=== PATIENT | female | born 2000 | race Caucasian/White ===

== ENCOUNTER → 2022-05-09 | Outpatient (CLI) | payer BC ==
--- NOTE | 2022-05-09 16:47 | CA ---
Transthoracic Echo Report Name: Tere Estevez Age: 21 Gender: F : 2000 Exam Date: 05/09/2022 13:43 Exam Location: [facility] Ht (in): 64 Wt (lb): 105 Ordering Physician: Rashida Barth MD Attending/Referring Phys: Rashida Barth MD [employer] Mayuri Quiroga, [facility] Procedure CPT: Indications: Z82.79 fam hx bicuspid valve Cardiac Hx: Technical Quality: Good Contrast 1: Total Dose (mL): Contrast 2: Total Dose (mL): MEASUREMENTS (Male / Female) Normal Values 2D ECHO LV Diastolic Diameter PLAX 4.1 cm 4.2 - 5.9 / 3.9 - 5.3 cm LV Systolic Diameter PLAX 2.4 cm IVS Diastolic Thickness 0.9 cm 0.6 - 1.0 / 0.6 - 0.9 cm LVPW Diastolic Thickness 0.7 cm 0.6 - 1.0 / 0.6 - 0.9 cm LV Relative Wall Thickness 0.4 RV Internal Dim ED PLAX 2.4 cm LA Systolic Diameter LX 2.9 cm 3.0 - 4.0 / 2.7 - 3.8 cm LA Volume 26.4 cm??? 18 - 58 / 22 - 52 cm??? M-MODE Aortic Root Diameter MM 2.6 cm MV E Point Septal Separation 0.3 cm AV Cusp Separation MM 2.3 cm DOPPLER AV Peak Velocity 144.6 cm/s AV Peak Gradient 8.4 mmHg MV Area PHT 3.6 cm??? Mitral E Point Velocity 120.8 cm/s Mitral A Point Velocity 82.6 cm/s Mitral E to A Ratio 1.5 MV Deceleration Time 210.5 ms MV E' Velocity 21.5 cm/s Mitral E to MV E' Ratio 5.6 TR Peak Velocity 221.9 cm/s TR Peak Gradient 19.7 mmHg Right Ventricular Systolic Press 23.8 mmHg FINDINGS Left Ventricle Left ventricular ejection fraction is estimated at 60-65 %. Left ventricular cavity size normal. Left ventricular wall thickness normal. Right Ventricle Normal right ventricular size and function. Right ventricular systolic pressure within normal limits. Right Atrium Normal right atrial size. Left Atrium Normal left atrial size. No evidence for an atrial septal defect. Mitral Valve Structurally normal mitral valve. No mitral stenosis, regurgitation or prolapse. Aortic Valve Trileaflet aortic valve. No aortic valve stenosis or regurgitation. Tricuspid Valve Structurally normal tricuspid valve. Trace to mild tricuspid regurgitation. Pulmonic Valve Structurally normal pulmonic valve. Trace pulmonic regurgitation. Pericardium Normal pericardium. No pericardial effusion. Aorta Normal size aortic root and proximal ascending aorta. CONCLUSIONS Left ventricular ejection fraction 60-65% No mitral regurgitation Trace to mild tricuspid regurgitation RVSP 23 No pericardial effusion Previewed by: Dr. Justin Ang DO (Electronically Signed) Final Date: 09 May 2022 16:46
== END | disposition home or self-care (01) ==
LOC: RADECHMAIN 13:22
PROVIDERS: ATTEND Family Medicine
DX: I07.1 Rheumatic tricuspid insufficiency (principal); Z82.79 Family history of other congenital malformations, deformations and chromosomal abnormalities
CPT/HCPCS: 93306